=== PATIENT | female | born 1960 | race Caucasian/White ===

== ENCOUNTER 2017-09-07 14:45 | Observation (INO) | payer MEDICARE, MEDICAID ==
[2017-09-07 16:38] LABS: CKMB 1.2 ng/mL (0-6.6); Troponin I Less than 0.010 ng/mL (< 0.028)
[2017-09-07 18:02] VITALS: BMI 35.6
[2017-09-07] MEDS ORDERED: Acetaminophen 325 MG TAB PO PRN (18:20)
[2017-09-07 19:41] LABS: Troponin I 0.012 ng/mL (< 0.028)
[2017-09-07] MEDS ORDERED: carBAMazepine 200 MG TAB PO SCH (21:45)
[2017-09-07] MEDS ORDERED: clonazePAM 1 MG TAB PO SCH (21:45)
[2017-09-07] MEDS ORDERED: Atorvastatin Calcium 20 MG TAB PO SCH (22:00)
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
[2017-09-08 05:09] LABS: #Eosinphils 0.1 thou/uL (0.0-0.7); #Lymphocytes 3.2 thou/uL (1.20-3.40); #Monocytes 0.6 thou/uL (0.11-0.59); #Neutrophils 4.3 thou/uL (1.40-6.50); %Basophils 0.5 % (0.0-1.0); %Eosinophils 0.9 % (0.0-10.0); %Lymphocytes 38.6 % (21.0-51.0); %Monocytes 7.3 % (0.0-10.0); %Neutrophils 52.8 % (42.0-75.0); Hemoglobin 13.8 g/dL (12.0-16.0); Mean Corpuscular HGB CONC 32.7 g/dL (32.0-36.0); Mean Corpuscular Hemoglobin 30.7 pg (27.0-31.0); Mean Platelet Volume 6.6 fL (7.4-10.4); Platelet Count 357 thou/uL (130-400); RBC Distribution Width 12.3 % (11.5-14.5); Red Blood Cell (RBC) Count 4.48 mill/uL (4.20-5.40); White Blood Cell (WBC) Count 8.2 thou/uL (4.8-10.8)
[2017-09-08 05:30] LABS: Anion Gap 12 mmol/L (10-20); BUN (Urea Nitrogen) 10 mg/dL (9.8-20.1); Calc. Creatinine Clearance 132 mL/min (70-130); Calcium 8.9 mg/dL (7.8-10.44); Carbon Dioxide 27 mmol/L (22-29); Chloride 106 mmol/L (98-107); Estimated GFR-MDRD 83; Glucose 101 mg/dL (70-105); Potassium 3.7 mmol/L (3.5-5.1); Sodium 141 mmol/L (136-145)
[2017-09-08] MEDS: Levothyroxine Sodium 75 MCG TAB PO SCH ×2 (06:03→15:47)
[2017-09-08] MEDS ORDERED: Amlodipine 10 MG TAB PO SCH (09:00)
[2017-09-08] MEDS ORDERED: Fluticasone Propionate Nasal Spray 16 gm Bottle NASAL SCH (09:00)
[2017-09-08] MEDS ORDERED: Enoxaparin Sodium 40 MG/0.4 ML SYRINGE SC SCH (09:00)
[2017-09-08] MEDS ORDERED: Pantoprazole 40 MG GRANULES PACKET PO SCH (09:00)
[2017-09-08] MEDS ORDERED: Estradiol 1 MG TAB PO SCH (09:00)
[2017-09-08] MEDS ORDERED: Polyethylene Glycol 3350 17 GM Packet PO SCH (09:00)
[2017-09-08] MEDS ORDERED: Venlafaxine HCl XR 150 MG CAP PO SCH (09:00)
[2017-09-08] MEDS ORDERED: clonazePAM 1 MG TAB PO SCH (09:00)
[2017-09-08] MEDS ORDERED: Regadenoson 0.4 MG/5 ML SYRINGE ONE (13:45)
[2017-09-08 15:34] VITALS: BP 182/70; TEMP 97.3
[2017-09-08] MEDS: carBAMazepine 200 MG TAB PO SCH ×2 (15:48→15:50)
--- NOTE | 2017-09-08 15:49 | NM ---
CARDIAC SPECT: CLINICAL HISTORY: 57-year-old female with chest pain. Family history of coronary artery disease. COPD. Hypertension. TECHNIQUE: A stress-only myocardial perfusion scan was performed following the intravenous administration of 9 m Ci technetium-99m sestamibi. Pharmacologic stress with Lexiscan was monitored and interpreted by Tre Blair. FINDINGS: Homogeneous tracer distribution is seen in the myocardial segments on the post stress images. GATED SPECT LVEF: 78%. WALL MOTION EXAM: Normal. IMPRESSION: Normal post stress myocardial perfusion scan. POS: KARINA
[2017-09-08] MEDS ORDERED: Atorvastatin Calcium 20 MG TAB PO SCH (21:00)
== END 2017-09-08 16:36 | disposition home or self-care (01) ==
LOC: ERS 14:45 → 2SW 16:43
PROVIDERS: ADMIT Internal Medicine; ATTEND Internal Medicine
DX: R07.89 Other chest pain (principal); I10 Essential (primary) hypertension; E03.9 Hypothyroidism, unspecified; K21.9 Gastro-esophageal reflux disease without esophagitis; J44.9 Chronic obstructive pulmonary disease, unspecified; E66.9 Obesity, unspecified; Z68.35 Body mass index [BMI] 35.0-35.9, adult; Z90.49 Acquired absence of other specified parts of digestive tract; Z90.710 Acquired absence of both cervix and uterus; Z80.1 Family history of malignant neoplasm of trachea, bronchus and lung; Z87.891 Personal history of nicotine dependence; Z88.5 Allergy status to narcotic agent; Z91.041 Radiographic dye allergy status; Z79.899 Other long term (current) drug therapy; Z79.51 Long term (current) use of inhaled steroids
CPT/HCPCS: 78452; 80048; 82553; 84443; 84484; 85025; 93017; 99285; A9500; G0378; 36415; J2785

== ENCOUNTER 2017-12-06 10:54 | Outpatient (CLI) | payer MEDICARE, MEDICAID ==
--- NOTE | 2017-12-06 13:40 | CT ---
CT CHEST WITHOUT CONTRAST: Technique: Multiple axial tomograms were obtained through the chest without IV enhancement. A low den se screening protocol was followed. Indications: Long-term history of smoking. FINDINGS: There are reticular nodular changes in the anterior left upper lobe in the apical region. Pleural bas ed stranding in the left lung base extending to the pleural surface measuring 7 mm thickness at the p leura. Mild stranding of the right lung base posteriorly. No adenopathy. Images through the upper abdomen ar e unremarkable. Osseous structures are unremarkable. IMPRESSION: 1. Stranding in the left lung base with thickening at the pleural surface posteriorly in the left catrina g base measuring 7-8 mm. 2. Subtle reticular nodular changes in the anterior left upper lobe. 3. Mild stranding in the right lung base. 4. Lung rads category III, probably benign. Recommend 6 month follow up noncontrast low dose screenin g CT to confirm stability of the pleural based thickening in the posterior left lower lung. POS: KARINA
== END 2017-12-06 10:55 | disposition home or self-care (01) ==
LOC: CT 10:54
PROVIDERS: ATTEND Family Medicine
DX: Z87.891 Personal history of nicotine dependence (principal); J92.9 Pleural plaque without asbestos
CPT/HCPCS: G0297

== ENCOUNTER 2018-07-04 09:04 | Outpatient (CLI) | payer MEDICARE, MEDICAID ==
--- NOTE | 2018-07-04 10:55 | CT ---
CT PULMONARY LUNG SCAN: History: oil heaterman history of smoking. 6-month follow up recommended due to some pleural based changes in the left lung base. Comparison: 12-06-17 FINDINGS: The pleural based linear changes seen in the left lower lobe are stable. This appears to represent so me parenchymal scar. There is similar but less pronounced linear parenchymal change in the right lowe r lobe, also stable and felt to represent scar. Subtle reticular nodular changes in the left upper lobe, felt to be stable. No discrete pulmonary nodules are identified. I do not appreciate a mediastinal or hilar adenopathy. Post op cholecystectomy changes are incidental ly seen. IMPRESSION: Lung RADS category 1 - negative. Continued annual screening examination with low dose CT is recommend ed in 12 months. POS: KARINA
== END 2018-07-04 09:05 | disposition home or self-care (01) ==
LOC: CT 09:04
PROVIDERS: ATTEND Family Medicine
DX: Z87.891 Personal history of nicotine dependence (principal); J92.9 Pleural plaque without asbestos
CPT/HCPCS: G0297

== ENCOUNTER 2019-01-29 08:40 | Outpatient (CLI) | payer MEDICARE, MEDICAID ==
--- NOTE | 2019-01-29 10:45 | MMO ---
Bilateral MAMMO Bilat Screen [facility]. CLINICAL HISTORY: Patient is 58 years old and is seen for screening. The patient has no family history of breast cancer. The patient has no personal history of cancer. The patient has a history of right Excisional Biopsy in ? - benign. VIEWS: The views performed were: bilateral craniocaudal with tomosynthesis and bilateral mediolateral oblique with tomosynthesis. FILMS COMPARED: The present examination has been compared to prior imaging studies performed at [facility] on 01/06/2017, and at [facility] on 03/29/2012 and 04/28/2015. MAMMOGRAM FINDINGS: There are scattered fibroglandular densities. There are no suspicious masses, suspicious calcifications, or new areas of architectural distortion. IMPRESSION: THERE IS NO MAMMOGRAPHIC EVIDENCE OF MALIGNANCY. A ROUTINE FOLLOW-UP MAMMOGRAM IN 1 YEAR IS RECOMMENDED. THE RESULTS OF THIS EXAM WERE SENT TO THE PATIENT. ACR BI-RADS Category 1 - Negative MAMMOGRAPHY NOTE: 1. A negative mammogram report should not delay a biopsy if a dominant of clinically suspicious mass is present. 2. Approximately 10% to 15% of breast cancers are not detected by mammography. 3. Adenosis and dense breasts may obscure an underlying neoplasm.
== END 2019-01-29 08:41 | disposition home or self-care (01) ==
LOC: BICMAMMO 08:40
PROVIDERS: ATTEND Family Medicine
DX: Z12.31 Encounter for screening mammogram for malignant neoplasm of breast (principal)
CPT/HCPCS: 77063; 77067

== ENCOUNTER 2019-07-18 09:09 | Outpatient (CLI) | payer MEDICARE, MEDICAID ==
--- NOTE | 2019-07-18 11:26 | CT ---
LOW DOSE CT SCAN CHEST WITHOUT IV CONTRAST FOR LUNG CANCER SCREENING: HISTORY: Previous smoker for 40 years, quit 10 years ago. Complains of hemoptysis for three weeks. COMPARISON: 07/04/2018 FINDINGS: No discrete pulmonary nodules are identified. Scarring in the lung base is again noted. No pleural or pericardial effusions are seen. There are vascular calcifications without evidence of aneurysmal dil atation of the thoracic aorta. There are degenerative changes in the spine. IMPRESSION: Lung-RADS category 1 - negative. RECOMMENDATIONS: LDCT is recommended in 12 months. POS: KARINA
== END 2019-07-18 09:10 | disposition home or self-care (01) ==
LOC: CT 09:09
PROVIDERS: ATTEND Family Medicine
DX: Z87.891 Personal history of nicotine dependence (principal)
CPT/HCPCS: G0297

== ENCOUNTER 2020-08-03 14:19 | Outpatient (CLI) | payer MEDICARE, MEDICAID ==
--- NOTE | 2020-08-03 15:02 | CT ---
CT PULMONARY LUNG SCAN: History: Personal history of nicotine dependence. Comparison: CT pulmonary scan July 2019. Findings: Lung screening specific (lung-RADS): No suspicious pulmonary nodule. Mild bibasilar scar. Potentially significant incidentals (lung-RADS category S): Negative. Pulmonary incidentals: Centrilobular micronodules within the upper lobes. Scattered scar in the left upper lobe. No pneumothorax. No consolidation. Other incidentals: No rib fracture. No suspicious osteolytic or osteoblastic lesion. Thoracic spine is intact. Sternum and manubrium are intact. Impression: 1. Lung RADS category 1: Negative. Screening low dose CT in 12 months is recommended. 2. Lung RADS category category S: Negative. No new or unknown potentially significant incidental find ings requiring urgent additional evaluation. 3. Upper lobe predominant respiratory bronchiolitis. Transcribed Date/Time: 08/03/2020 3:36 PM
== END 2020-08-03 14:20 | disposition home or self-care (01) ==
LOC: BICCT 14:19
PROVIDERS: ATTEND Family Medicine
DX: Z12.2 Encounter for screening for malignant neoplasm of respiratory organs (principal); Z87.891 Personal history of nicotine dependence; J84.115 Respiratory bronchiolitis interstitial lung disease
CPT/HCPCS: G0297

== ENCOUNTER 2021-08-24 11:40 | Outpatient (CLI) | payer MEDICARE, MEDICAID | END 2021-08-24 11:41 | disposition home or self-care (01) | LOC: BICMAMMO 11:40 | PROVIDERS: ATTEND Family Medicine | DX: Z12.31 Encounter for screening mammogram for malignant neoplasm of breast (principal) | CPT/HCPCS: 77063; 77067 ==

== ENCOUNTER 2023-06-20 10:01 | Outpatient (CLI) | payer OTHER | END 2023-06-20 10:02 | disposition home or self-care (01) | LOC: BICMAMMO 10:01 | PROVIDERS: ATTEND Internal Medicine | DX: Z12.31 Encounter for screening mammogram for malignant neoplasm of breast (principal); Z91.89 Other specified personal risk factors, not elsewhere classified | CPT/HCPCS: 77063; 77067 ==

== ENCOUNTER 2025-03-27 09:51 | Outpatient (CLI) | payer MEDICARE, OTHER | END 2025-03-27 09:52 | disposition home or self-care (01) | LOC: BICMAMMO 09:51 | PROVIDERS: ATTEND Family Medicine | DX: Z12.31 Encounter for screening mammogram for malignant neoplasm of breast (principal); Z91.89 Other specified personal risk factors, not elsewhere classified | CPT/HCPCS: 77063; 77067 ==